=== PATIENT | female | born 1995 | race Caucasian/White ===

== ENCOUNTER 2024-01-21 17:51 | Emergency (ER) | payer SELFPAY ==
[~2024-01-21] VITALS: Ht 160 cm; Wt 60.0 kg
[2024-01-21 18:06] VITALS: O2SAT 95
[2024-01-21] MEDS: LIDOCAINE HCL 1% 20ML VIAL INFIL ONE (19:15)
[2024-01-21] MEDS: HYDROCODONE/ACETAMINOPHEN 5/325MG TABLET PO ONE (20:32)
[2024-01-21] MEDS ORDERED: IBUP-2029 MT (21:18)
[2024-01-21 22:35] VITALS: BP 126/82; PULSE 94; RESP 20; TEMP 98.2
== END 2024-01-21 23:02 | disposition home or self-care (01) ==
LOC: ER 17:51
DX: S60.444A External constriction of right ring finger, initial encounter (principal); X58.XXXA Exposure to other specified factors, initial encounter; Y93.89 Activity, other specified; Y92.89 Other specified places as the place of occurrence of the external cause; Y99.8 Other external cause status
CPT/HCPCS: 99284; 73130; J3490; 99283

== ENCOUNTER 2024-05-06 17:51 | Emergency (ER) | payer SELFPAY ==
[~2024-05-06] VITALS: Ht 157.5 cm; Wt 64.0 kg
[~2024-05-06 17:51] MED LIST: IBUP-2029 MT
[2024-05-06 17:58] VITALS: BP 145/93; TEMP 87.6; O2SAT 99
[2024-05-06 18:04] VITALS: PULSE 100; RESP 18; O2SAT 99
== END 2024-05-06 22:20 | disposition left against medical advice (07) ==
LOC: ER 17:51
DX: M54.9 Dorsalgia, unspecified (principal); Z53.21 Procedure and treatment not carried out due to patient leaving prior to being seen by health care provider